=== PATIENT | female | born 1945 ===

== ENCOUNTER 2016-10-24 13:35 | Emergency (ER) | payer MEDICARE, OTHER ==
[2016-10-24 13:41] VITALS: BP 154/95; PULSE 104; RESP 17; TEMP 98.9; O2SAT 98
--- NOTE | 2016-10-24 14:54 | C.PDOC ---
History Of Present Illness 71 y/o female presents to the ED for evaluation of itchy scalp and swelling which began around 3 days ago. Patient states she used a new hair dye 3 days ago and woke up the next day with an itchy scalp. Patient's symptoms progressed to swelling to her scientology and forehead. Contrary to triage, patient does not present with periorbital swelling. Patient denies shortness of breath, throat swelling, rash. Time Seen by Provider: 10/24/16 14:00 Chief Complaint (Nursing): Allergic Reaction History Per: Patient History/Exam Limitations: no limitations Onset/Duration Of Symptoms: Days (3) Current Symptoms Are (Timing): Still Present Possible Cause: Other (new hair dye ) Associated Symptoms: Swelling, Itching. denies: Skin Rash Home/EMS Treatment: None Additional History Per: Patient Past Medical History Reviewed: Historical Data, Nursing Documentation, Vital Signs Vital Signs: Last Vital Signs Temp 98.9 F 10/24/16 13:40 Pulse 104 H 10/24/16 13:40 Resp 17 10/24/16 13:40 BP 154/95 H 10/24/16 13:40 Pulse Ox 98 10/24/16 22:57 - Medical History PMH: No Chronic Diseases Surgical History: No Surg Hx Family History: States: Unknown Family Hx - Social History Hx Alcohol Use: Yes Hx Substance Use: No Review Of Systems ENT: Negative for: Throat Swelling Respiratory: Negative for: Shortness of Breath Skin: Positive for: Other (+itchy scalp, forehead and scientology swelling ). Negative for: Rash Physical Exam - Physical Exam Appears: Non-toxic, No Acute Distress Skin: Normal Color, Warm, Dry Head: Atraumatic, No Tenderness, Swelling (forehead and scientology, along hairline ) , No Other (periorbital swelling ) Eye(s): bilateral: Normal Inspection Oral Mucosa: Moist Neck: Supple Chest: Symmetrical Cardiovascular: Rhythm Regular Respiratory: Normal Breath Sounds Extremity: Normal ROM Neurological/Psych: Oriented x3, Normal Speech, Normal Cognition Gait: Steady ED Course And Treatment O2 Sat by Pulse Oximetry: 98 (on RA) Pulse Ox Interpretation: Normal Progress Note: Patient received Pepcid PO and Prednisone PO.On reassessment, patient is resting comfortably, showing no signs of respiratory distress and is stable for discharge. Unable to give patient Benadryl at this time because she insists on driving herself back home and does not want anyone to pick her up from the ED. Patient will be provided a Rx for Benadryl and is advised to take the medication at home as prescribed. Advised patient to follow up with her PMD within 1-2 days for further evaluation and/or return to the ED if symptoms worsen. Disposition - Disposition Referrals: Brea Muñoz MD [Medical Doctor] - Disposition: HOME/ ROUTINE Disposition Time: 14:51 Condition: STABLE Additional Instructions: Follow up with PMD within 1-2 days. Return to Ed if feel worse. Prescriptions: DiphenhydrAMINE [Benadryl] 25 mg PO .Q4-6 H #30 cap Fluocinolone/Shower Cap [Belt-Smoothe/Fs 118.28 ml] 1 appl TP DAILY #1 bottle Famotidine [Pepcid] 20 mg PO BID #20 tab predniSONE [predniSONE Tab] 2 tab PO DAILY #8 tab Instructions: Contact Dermatitis (ED) Forms: [employer] (Maori) - Clinical Impression Clinical Impression: Contact dermatitis - PA / SPORTS PHOTOGRAPHER / Resident Statement MD/DO has reviewed & agrees with the documentation as recorded. - Scribe Statement The provider has reviewed the documentation as recorded by the Scribe (Deja Christian) All medical record entries made by the Scribe were at my direction and personally dictated by me. I have reviewed the chart and agree that the record accurately reflects my personal performance of the history, physical exam, medical decision making, and the department course for this patient. I have also personally directed, reviewed, and agree with the discharge instructions and disposition.
== END 2016-10-24 15:11 | disposition home or self-care (01) ==
LOC: C.ER 13:35
DX: L25.2 Unspecified contact dermatitis due to dyes (principal)